=== PATIENT | female | born 2000 | race Caucasian/White ===

== ENCOUNTER 2021-02-26 18:07 | Emergency (ER) | payer OTHER ==
[~2021-02-26] VITALS: Ht 154.9 cm; Wt 47.7 kg
[2021-02-26] MEDS ORDERED: IRON325T2 PO (18:13)
[2021-02-26] MEDS ORDERED: dexameTHASONE 20MG/5ML VIAL (J1100 PER 1MG) IM ONE (22:15)
[2021-02-26] MEDS ORDERED: AUGMENTIN 875 MG TAB PO ONE (22:15)
[2021-02-26] MEDS ORDERED: AUGM875T28 PO (22:17)
[2021-02-26] MEDS ORDERED: PRED20TA PO (22:17)
[2021-02-26 22:34] VITALS: BP 121/65
== END 2021-02-26 22:49 | disposition home or self-care (01) ==
LOC: M ED 18:07
DX: J36 Peritonsillar abscess (principal)
CPT/HCPCS: 81001; 87880; 96372; 99283; J1100

== ENCOUNTER → 2022-01-27 | Outpatient (CLI) | payer OTHER ==
[~2022-01-27] MED LIST: AUGM875T28 PO; IRON325T2 PO; PRED20TA PO
== END ==
LOC: M RAD 14:05
PROVIDERS: ATTEND Physician Assistant
DX: R19.09 Other intra-abdominal and pelvic swelling, mass and lump (principal)

== ENCOUNTER → 2022-03-30 | Outpatient (CLI) | payer OTHER | LOC: M RAD 13:55 | PROVIDERS: ATTEND Obstetrics & Gynecology | DX: N85.4 Malposition of uterus (principal); N83.201 Unspecified ovarian cyst, right side ==

== ENCOUNTER → 2022-05-03 | Outpatient (CLI) | payer OTHER ==
[~2022-05-03] MED LIST changes: +PROHANCE 279.3MG/ML 5ML VIAL ONE
== END ==
LOC: M PLAIMG 13:35
PROVIDERS: ATTEND Obstetrics & Gynecology
DX: N85.8 Other specified noninflammatory disorders of uterus (principal)
CPT/HCPCS: 72197; A9576

== ENCOUNTER 2022-06-01 09:30 | Day surgery (SDC) | payer OTHER ==
[~2022-06-01] VITALS: Ht 154.9 cm; Wt 44.5 kg
[~2022-06-01 09:30] MED LIST changes: +EFFE75CA2 PO; -PROHANCE 279.3MG/ML 5ML VIAL ONE; +SYNT25TA PO
[2022-06-01] MEDS ORDERED: LIDOCAINE 1% SDV 5ML VIAL SC PRN (09:45)
[2022-06-01] MEDS ORDERED: LR 1,000 ML IV SCH ×2 (09:45→15:20)
[2022-06-01] MEDS ORDERED: EMLA CREAM 5GM TUBE (LIDOCAINE/PRILOCAINE) TOP PRN (09:45)
[2022-06-01 10:05] LABS: HEMOGLOBIN 12.9 g/dl (12.0-15.5)
[2022-06-01] MEDS ORDERED: LIDOCAINE W/EPINEPHRINE 1% 20ML VIAL As Ordered ONE (11:08)
[2022-06-01] MEDS ORDERED: EPINEPHrine 1MG/ML INJ 30ML MD-VIAL As Ordered ONE (11:08)
[2022-06-01] MEDS ORDERED: METHYLENE BLUE 0.5% (5MG/ML) 10 ML AMP (PROVAYBLUE) As Ordered ONE ×2 (11:08→13:35)
[2022-06-01] MEDS ORDERED: ONDANSETRON 4MG 2ML VIAL As Ordered ONE (13:11)
[2022-06-01] MEDS ORDERED: KETOROLAC 60MG 2ML VIAL As Ordered ONE (13:11)
[2022-06-01] MEDS ORDERED: ROCURONIUM BROMIDE 50MG/5ML VIAL As Ordered ONE (13:11)
[2022-06-01] MEDS ORDERED: ACETAMINOPHEN 1000MG 100ML IV BAG As Ordered ONE (13:11)
[2022-06-01] MEDS ORDERED: propofoL 200 MG/20 ML VIAL As Ordered ONE (13:11)
[2022-06-01] MEDS ORDERED: LIDOCAINE 2% 100MG/5ML SDV (FOR ANES.) As Ordered ONE (13:11)
[2022-06-01] MEDS ORDERED: fentaNYL 100 MCG/2 ML INJECTION As Ordered ONE (13:12)
[2022-06-01] MEDS ORDERED: MIDAZOLAM INJ 2MG/2ML VIAL As Ordered ONE (13:13)
[2022-06-01] MEDS ORDERED: BUPIVACAINE HCL 0.25% 30ML VIAL As Ordered ONE (13:35)
[2022-06-01] MEDS ORDERED: SILVER NITRATE APPLICATOR (1 = QTY 10) As Ordered ONE (15:07)
[2022-06-01] MEDS ORDERED: HYDROMORPHONE HCL 0.5 MG/ 0.5 ML SYRINGE IV PRN (15:20)
[2022-06-01] MEDS ORDERED: METOCLOPRAMIDE INJ 10MG/2ML VIAL IV PRN (15:20)
[2022-06-01] MEDS ORDERED: ONDANSETRON 4MG 2ML VIAL IV PRN (15:20)
[2022-06-01] MEDS ORDERED: fentaNYL 100 MCG/2 ML INJECTION IV PRN (15:20)
[2022-06-01] MEDS ORDERED: oxyCODONE 5MG TAB PO PRN ×2 (15:20→15:40)
[2022-06-01 17:10] VITALS: BP 119/70
[2022-06-01] MEDS ORDERED: SUGAMMADEX SODIUM 500 MG/5 ML VIAL (BRIDION) As Ordered ONE (17:19)
== END 2022-06-01 17:12 | disposition home or self-care (01) ==
LOC: M SDC 09:30
PROVIDERS: ATTEND Obstetrics & Gynecology
DX: R10.2 Pelvic and perineal pain (principal); N93.9 Abnormal uterine and vaginal bleeding, unspecified; K59.00 Constipation, unspecified; E03.9 Hypothyroidism, unspecified; F41.9 Anxiety disorder, unspecified; F32.A Depression, unspecified; Z91.018 Allergy to other foods; Z79.899 Other long term (current) drug therapy; Z79.890 Hormone replacement therapy
CPT/HCPCS: 36415; 49320; 58558; 81025; 85014; 85018; 88305; J0131; J0171; J1100; J1885; J2250; J2405; J3010; Q9968; S0020

== ENCOUNTER → 2022-08-23 | Outpatient (CLI) | payer OTHER ==
[~2022-08-23] MED LIST changes: +HOLTER MONITOR XX
== END ==
LOC: M EKG 09:27
PROVIDERS: ATTEND Internal Medicine
DX: R00.2 Palpitations (principal)

== ENCOUNTER 2023-05-16 16:33 | Emergency (ER) | payer OTHER ==
[~2023-05-16] VITALS: Ht 154.9 cm; Wt 44.7 kg
[2023-05-16 16:34] VITALS: BP_DIAS 79
[2023-05-16] MEDS ORDERED: PROZ20CA11 PO (16:42)
[2023-05-16] MEDS ORDERED: LEVO25TA5 PO (16:42)
[2023-05-16 19:48] LABS: BASO # 0.1 10^3/uL (0.0-0.2); BASO % 0.5 % (0.0-1.0); EOS # 0.1 10^3/uL (0.0-0.5); EOS % 0.7 % (0.0-3.0); HEMATOCRIT 38.5 % (36.0-47.0); LYMPH # 2.8 10^3/uL (1.5-5.0); LYMPH % 29.6 % (24.0-44.0); MEAN CORPUSCULAR HEMOGLOBIN 28.8 pg (27.0-33.0); MEAN CORPUSCULAR HGB CONC 33.8 g/dl (32.0-36.5); MEAN CORPUSCULAR VOLUME 85.4 fl (80.0-96.0); MONO # 0.7 10^3/uL (0.0-0.8); MONO % 7.3 % (2.0-8.0); NEUTROPHILS # 5.8 10^3/uL (1.5-8.5); NEUTROPHILS % 61.6 % (36.0-66.0); PLATELET COUNT, AUTOMATED 395 10^3/uL (150-450); RED BLOOD COUNT 4.51 10^6/uL (4.00-5.40); WHITE BLOOD COUNT 9.4 10^3/uL (4.0-10.0)
[2023-05-16 20:19] LABS: BLOOD UREA NITROGEN 10 MG/DL (9-23); CARBON DIOXIDE LEVEL 25 MMOL/L (20-31); CHLORIDE LEVEL 104 MMOL/L (98-107); CREATININE FOR GFR 0.57 MG/DL (0.55-1.30); GLOMERULAR FILTRATION RATE > 60.0 (>60); GLUCOSE, FASTING 87 MG/DL (60-100); SODIUM LEVEL 137 MMOL/L (136-145)
[2023-05-16 20:27] LABS: HCG, SERUM QUALITATIVE NEGATIVE (NEGATIVE)
[2023-05-16] MEDS ORDERED: DOXY-443 PO (21:00)
[2023-05-16] MEDS ORDERED: HYDR25OIN TOP (21:00)
[2023-05-16 21:07] VITALS: BP_SYST 113; TEMP 97.7; O2SAT 98
== END 2023-05-16 21:08 | disposition home or self-care (01) ==
LOC: M ED 16:33
DX: L03.115 Cellulitis of right lower limb (principal); B37.0 Candidal stomatitis; E03.9 Hypothyroidism, unspecified; Z97.5 Presence of (intrauterine) contraceptive device; Z91.018 Allergy to other foods; Z91.012 Allergy to eggs

== ENCOUNTER → 2023-07-12 | Outpatient (CLI) | payer OTHER ==
[~2023-07-12] MED LIST changes: +DOXY-443 PO; +HYDR25OIN TOP; +LEVO25TA5 PO; +PROZ20CA11 PO
== END ==
LOC: M WHC 07:32
PROVIDERS: ATTEND Physician Assistant
DX: N63.21 Unspecified lump in the left breast, upper outer quadrant (principal)